=== PATIENT | male | born 1980 | race Two or more races ===

== ENCOUNTER 2018-10-24 06:59 | Emergency (ER) | payer BC ==
[~2018-10-24] VITALS: Ht 177.8 cm; Wt 90.7 kg
--- NOTE | 2018-10-24 08:26 | NUR ---
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
[2018-10-24] MEDS ORDERED: KETOROLAC TROMETHAMINE INJ 30 MG/ML VIAL IM ONE (08:30)
[2018-10-24] MEDS ORDERED: KETOROLAC TROMETHAMINE 15 MG/ML VIAL ONE (08:30)
[2018-10-24 09:56] VITALS: BP 124/79
--- NOTE | 2018-10-24 10:04 | NUR ---
for discharge - ACI given Home ambulatory in stable condition
== END 2018-10-24 10:08 | disposition home or self-care (01) ==
LOC: ER 07:03
DX: R60.0 Localized edema (principal); J02.8 Acute pharyngitis due to other specified organisms
CPT/HCPCS: 87070; 87880; 93971; 96372; 99284; A4606; J1885; 86403-TC

== ENCOUNTER 2018-11-05 08:56 | Outpatient (CLI) | payer BC ==
[2018-11-05 09:31] LABS: BASOPHILS % (AUTO) 0.3 % (0.0-2.0); EOSINOPHILS % (AUTO) 0.8 % (0.0-6.0); HEMATOCRIT 48 % (39-51); HEMOGLOBIN 16.5 g/dL (13.5-17.5); LYMPHOCYTES # (AUTO) 2.7 /CMM (0.8-4.8); LYMPHOCYTES % (AUTO) 43.6 % (20.0-44.0); MEAN CORPUSCULAR HGB CONC 34 g/dl (31.0-36.0); MEAN CORPUSCULAR VOLUME 90 fL (80-96); MONOCYTES # (AUTO) 0.4 /CMM (0.1-1.30); MONOCYTES % (AUTO) 5.7 % (2.0-12.0); NEUTROPHILS # (AUTO) 3.1 /CMM (1.8-8.9); NEUTROPHILS % (AUTO) 49.6 % (43.0-81.0); PLATELET COUNT (AUTO) 346 /CMM (150-450); RED BLOOD CELL COUNT(AUTO) 5.33 MIL/uL (4.5-6.0); WHITE BLOOD COUNT (AUTO) 6.2 K/uL (4.3-11.0)
[2018-11-05 09:32] LABS: APPEARANCE,URINE CLEAR (CLEAR); BILIRUBIN,URINE NEGATIVE (NEGATIVE); BLOOD, URINE NEGATIVE Ery/uL (NEGATIVE); COLOR,URINE YELLOW (YELLOW); KETONES,URINE NEGATIVE (NEGATIVE); LEUKOCYTE ESTERASE ,URINE NEGATIVE (NEGATIVE); NITRITE, URINE NEGATIVE (NEGATIVE); PROTEIN,URINE NEGATIVE (NEGATIVE); UGLUCOSE NEGATIVE (NEGATIVE); UROBILINOGEN,URINE 0.2 EU/dL (0.2)
[2018-11-05 10:09] LABS: ALBUMIN 3.8 g/dL (3.4-5.0); BILIRUBIN,TOTAL 0.6 mg/dL (0.2-1.0); CALCIUM, SERUM 9.3 mg/dL (8.5-10.1); CREATININE 1.1 mg/dL (0.6-1.3); TOTAL PROTEIN, SERUM 7.7 g/dL (6.4-8.2)
[2018-11-05 10:16] LABS: C-REACTIVE PROTEIN 0.3 mg/dL (0.0-0.9); PROSTATE SPECIFIC ANTIGEN SCR 0.76 ng/mL (0.00-4.00); THYROID STIMULATING HORMONE 1.607 uIU/mL (0.358-3.74)
[2018-11-06 08:10] LABS: T3, FREE 3.3 pg/mL (2.0-4.4)
== END 2018-11-05 23:59 | disposition home or self-care (01) ==
LOC: LAB 08:56
DX: K21.9 Gastro-esophageal reflux disease without esophagitis (principal); R53.83 Other fatigue; R53.81 Other malaise; E11.9 Type 2 diabetes mellitus without complications; Z82.49 Family history of ischemic heart disease and other diseases of the circulatory system
CPT/HCPCS: 36415; 80053-TC; 80061-TC; 81000-TC; 84153-TC; 84402; 84403; 84439-TC; 84443-TC; 84481; 85025-TC; 85652-TC; 86140-TC